=== PATIENT | female | born 1975 | race Caucasian/White ===

== ENCOUNTER 2022-08-12 07:00 | Outpatient (CLI) | payer OTHER, SELFPAY | END 2022-08-12 07:01 | disposition home or self-care (01) | LOC: NFLDREF 08-13 10:06 | PROVIDERS: Visit Provider Nurse Practitioner Family | DX: D50.9 Iron deficiency anemia, unspecified (principal) | CPT/HCPCS: 82270 ==

== ENCOUNTER 2022-09-26 06:04 | Day surgery (SDC) | payer OTHER, SELFPAY ==
[2022-09-26] VITALS (7 sets, daily range): BP systolic 99–124; BP diastolic 60–79; PULSE 62–86; RESP 14–16; TEMP 36.1–36.7; O2SAT 96–100; BMI 33.9
[2022-09-26 06:30] LABS: Ur HCG Qualitative* Negative (Negative)
[2022-09-26] MEDS: SODIUM CHLORIDE 0.9 % (FLUSH) 10 ML SYRINGE IVF (06:47)
[2022-09-26] MEDS: LACTATED RINGERS 1000 ML 1,000 ML 100 ML IV (06:48)
[2022-09-26 06:49] LABS: Hemoglobin* 9.7 gm/dL (12.0-16.0)
[2022-09-26 07:12] LABS: Creatinine* 0.5 mg/dL (0.5-1.5); Est. Creatinine Clearance* 170.92; Estimated Glomerular Filt Rate 118 ml/min
[2022-09-26] MEDS: SILVER NITRATE APPLICATOR 1 EACH STICK..EA. TOPICAL (08:08)
--- NOTE | 2022-09-26 08:19 | W.ANESCHARGE ---
Anesthesia Charges Start Date/Time Anesthesia Start Date: 09/26/22 Anesthesia Start Time: 07:30 Stop Date/Time Anesthesia Stop Date: 09/26/22 Anesthesia Stop Time: 08:20
--- NOTE | 2022-09-26 08:34 | W.PM.GYNPROC ---
Procedure Note Time Seen by Provider: 07:00 Date of procedure: 09/26/22 Procedure: Preoperative diagnosis: Pallavi is a 46 year-old with abnormal uterine bleeding. Postoperative diagnosis: Same Procedure: Hysteroscopy, dilation and curettage, Mirena IUD insertion Anesthesia: Conscious sedation with paracervical block. Surgeon: Mireya Betts MD Estimated blood loss: <5 mL Specimen: Endometrial curettings to pathology. Findings: Exam under anesthesia: Cervix with 1 cm fibroid at 12 o'clock on anterior lip. Uterus: mid position, 8 week size, mobile, without nodularity/masses palpable. Adnexa were without fullness or nodularity. On hysteroscopy: Normal cervical canal. Normal uterine cavity and bilateral ostia. No obvious pathology. Procedure: Pallavi was taken to the operating where conscious sedation was found to be adequate. She was placed in the dorsal lithotomy position. An exam under anesthesia was performed with findings stated above. She was then prepped and draped in normal sterile manner. A bivalve metal speculum was placed in the vaginal canal. The cervix and vaginal canal appear normal. A paracervical block was placed using 1% lidocaine with epi: 5 mL injected at the 4 and 8 o'clock positions on the cervix. The anterior lip of the cervix was then grasped with a tenaculum. The cervix was dilated to Hegar 6. The uterus sounded to 10 cm. The hysteroscope advanced into the uterus and a diagnostic hysteroscopy was performed with findings stated above. Normal saline was used as the insufflation medium. Soft tissue shaver was used to obtained circumferential endometrial curetting. The hysteroscope was then removed. A sharp curettage was performed until a gritty texture was noted. The hysteroscope was then readvanced into the uterus and documented a normal appearing uterine cavity. Attention was turned to Mirena IUD insertion. Uterus sounds to 10 cm. The IUD is loaded into the insertion tube, inserted to the sounded depth, and the IUD is deployed. Insertion tube was removed. Strings are trimmed to 3 cm. There were no complications with insertion. Fluid deficit at the end of the procedure 50 mL. The hysteroscope and tenaculum were removed from the uterus and cervix. 1 silver nitrate stick was used at left tenaculum puncture site. Excellent hemostasis noted. Nothing was used for hemostasis. The patient tolerated the procedure well. Sponge, lap and instruments counts were correct at the end of the procedure. The patient was awakened from anesthesia and taken to the recovery area in stable condition.
--- NOTE | 2022-09-26 08:41 | W.ANESCHARGE ---
Anesthesia Charges Start Date/Time Anesthesia Start Date: 09/26/22 Anesthesia Start Time: 07:30 Stop Date/Time Anesthesia Stop Date: 09/26/22 Anesthesia Stop Time: 08:20
== END 2022-09-26 09:48 | disposition home or self-care (01) ==
PROVIDERS: PCP Nurse Practitioner Family; Visit Provider Obstetrics & Gynecology
PROC: 0UDB8ZZ Extraction of Endometrium, Via Natural or Artificial Opening Endoscopic (ICD-10-PCS; CPT 58558; principal; 2022-09-26 07:15)
DX: N93.8 Other specified abnormal uterine and vaginal bleeding (principal); Z30.430 Encounter for insertion of intrauterine contraceptive device
CPT/HCPCS: 58558; 58300; 00952; 36415; 81025; 82565; 85018; 88305; T1013; A9270; J1100; J1885; J2250; J2405; J2704; J3010; J7120; J7298